=== PATIENT | female | born 1965 | race Caucasian/White ===

== ENCOUNTER 2017-01-20 16:40 | Emergency (ER) | payer SELFPAY ==
[2017-01-20] MEDS ORDERED: BENADRYL IV ONE (17:09)
[2017-01-20] MEDS ORDERED: REGLAN IV ONE (17:09)
--- NOTE | 2017-01-20 17:11 | Emergency Department Report ---
ED Headache HPI - General Chief Complaint: Headache Stated Complaint: MIGRAINE HEADACHE X3 WKS Time Seen by Provider: 01/20/17 17:03 - History of Present Illness Initial Comments: This is a 51-year-old female well-nourished with nontoxic or ill in appearance that presents with intermittent headache x3 weeks. Patient stated has hx of migraine headaches that is resolved with an unknown medication. Patient stated has been seeing a "Migraine doctor" and was given a mixed drug in the office that contents placenta. Patient stated the office has been closed because the provider retired and she no longer has the medication. Patient stated the headache are intermittent and describes it as throbbing sensation in frontal lobe region. Patient rates pain level of 8/10. Patient denies worst headache in her life. Patient stated darkness makes the headache subside and lightness and sounds makes the headache worst. Patient also denies CP, SOB, fever, chills , blurry vision, stiff neck, visual changes, abd pain, numbness, tingling. Patient states allergies to Sulfa. Denies PMH besides migraine headaches. Senait Bustos currently present at bedside. Timing/Duration: other (3 weeks) Quality: mild Head Injury Location: frontal Recent Head Trauma: no recent headache/trauma, frequent headaches, chronic headaches Associated Symptoms: denies symptoms. denies: confusion, fatigue, facial pain, fever/chills, flushing, loss of consciousness, nausea/vomiting, nasal congestion , nasal drainage, numbness in legs/feet, rash, seizures, sinus infection, stiff neck, vision changes, weakness Allergies/Adverse Reactions: Allergies Sulfa (Sulfonamide Antibiotics) Allergy (Verified 01/20/17 16:48) Rash Home Medications: Ambulatory Orders Ibuprofen [Motrin 600 MG tab] 600 mg PO Q8H PRN #20 tablet 01/20/17 ED Review of Systems ROS: Stated complaint: MIGRAINE HEADACHE X3 WKS Other details as noted in HPI Constitutional: denies: chills, fever Eyes: denies: eye pain, eye discharge, vision change ENT: denies: ear pain, throat pain Respiratory: denies: cough, shortness of breath, wheezing Cardiovascular: denies: chest pain, palpitations Endocrine: no symptoms reported Gastrointestinal: denies: abdominal pain, nausea, diarrhea Genitourinary: denies: urgency, dysuria, discharge Musculoskeletal: denies: back pain, joint swelling, arthralgia Skin: denies: rash, lesions Neurological: denies: headache, weakness, paresthesias Psychiatric: denies: anxiety, depression Hematological/Lymphatic: denies: easy bleeding, easy bruising ED Past Medical Hx - Past Medical History Previous Medical History?: Yes Hx Headaches / Migraines: Yes - Surgical History Additional Surgical History: hysterectomy - Social History Smoking Status: Never Smoker Substance Use Type: None - Medications Home Medications: Home Medications Medication Instructions Recorded Confirmed Last Taken Type Ibuprofen [Motrin 600 MG tab] 600 mg PO Q8H PRN #20 tablet 01/20/17 Unknown Rx ED Physical Exam - General Limitations: No Limitations General appearance: alert, in no apparent distress - Head Head exam: Present: atraumatic, normocephalic, normal inspection - Eye Eye exam: Present: normal appearance, PERRL, EOMI. Absent: scleral icterus, conjunctival injection, nystagmus, periorbital swelling, periorbital tenderness Pupils: Present: normal accommodation - ENT ENT exam: Present: normal exam, normal orophraynx, mucous membranes moist, TM's normal bilaterally, normal external ear exam - Neck Neck exam: Present: normal inspection, full ROM. Absent: tenderness, meningismus, lymphadenopathy, thyromegaly - Respiratory Respiratory exam: Present: normal lung sounds bilaterally. Absent: respiratory distress, wheezes, rales, rhonchi, stridor, chest wall tenderness, accessory muscle use, decreased breath sounds, prolonged expiratory - Cardiovascular Cardiovascular Exam: Present: regular rate, normal rhythm, normal heart sounds. Absent: bradycardia, tachycardia, irregular rhythm, systolic murmur, diastolic murmur, rubs, gallop - GI/Abdominal GI/Abdominal exam: Present: soft, normal bowel sounds. Absent: distended, tenderness, guarding, rebound, rigid, diminished bowel sounds - Extremities Exam Extremities exam: Present: normal inspection, full ROM, normal capillary refill. Absent: tenderness, pedal edema, joint swelling, calf tenderness - Back Exam Back exam: Present: normal inspection, full ROM. Absent: tenderness, CVA tenderness (R), CVA tenderness (L), muscle spasm, paraspinal tenderness, vertebral tenderness, rash noted - Neurological Exam Neurological exam: Present: alert, oriented X3, CN II-XII intact, normal gait, reflexes normal - Expanded Neurological Exam Expanded Patient oriented to: Present: person, place, time Speech: Present: fluid speech (normal speech) Cranial nerves: EOM's Intact: Normal, Gag Reflex: Normal, Tongue Deviation: Normal, Nystagmus: Normal, Facial Sensation: Normal, Facial Palsy with Forehead Movement: Normal, Facial Palsy without Forehead Movement: Normal Cerebellar function: Finger to Nose: Normal, Heel to Buck: Normal, Romberg: Normal Upper motor neuron: Santiago Neglect: Normal, Pronator Drift: Normal, Babinski Sign : Normal, Sensory Extinction: Normal Sensory exam: Upper Extremity Light Touch: Normal, Upper Extremity Pin Prick: Normal, Upper Extremity Temperature: Normal, UE 2 Point Discrimination: Normal, Lower Extremity Light Touch: Normal, Lower Extremity Pin Prick: Normal, Lower Extremity Temperature: Normal, LE 2 Point Discrimination: Normal Motor strength exam: RUE: 5, LUE: 5, RLE: 5, LLE: 5 DTR: bicep (R): 2+, bicep (L): 2+, tricep (R): 2+, tricep (L): 2+, knee (R): 2+ , knee (L): 2+, ankle (R): 2+, ankle (L): 2+ Best Eye Response ([place]): (4) open spontaneously Best Motor Response ([place]): (6) obeys commands Best Verbal Response (Talia): (5) oriented Talia Total: 15 - Psychiatric Psychiatric exam: Present: normal affect, normal mood - Skin Skin exam: Present: warm, dry, intact, normal color. Absent: rash ED Course Vital Signs 01/20/17 16:44 Temperature 98.6 F Pulse Rate 60 Respiratory 16 Rate Blood Pressure 135/85 O2 Sat by Pulse 100 Oximetry - Reevaluation(s) Reevaluation #1: 01/20/17 18:21 Patient stated feels much better and headache has subsided after treatment in the ED. No signs of distress noted. Senait Sargent is currently present at the bedside. Reevaluation #2: 01/20/17 18:43 Patient is resting comfortably with no signs of distress. Patient stated "feels like a new person". Denies headache currently and stated headache has subsided completely 0/10. ED Medical Decision Making - Medical Decision Making Ed course: This is a 51-year-old female that presents with migrane headaches 1- after my physical exam, patient received Benadryl, Reglan, Toradol, normal saline 1000 mL bolus in the ED 2- patient felt much better with headaches subside. 3- patient's senait Sargent is currently present the bedside and I instructed patient and fibette not operate heavy machinery after discharge due to sedation/drowsiness of Benadryl. 4- patient received ibuprofen 600 mg by mouth at the time of discharge. 5- at time time of discharge, the patient does not seem toxic or ill in appearance. No acute signs of distress noted. Patient agrees to discharge treatment plan of care. No further questions noted by the patient. 6-Follow-up with your primary care doctor/neurologist in 3-5 days or if symptoms such as blurred vision, severe uncontrollable headache, nausea vomiting , dizziness, chest pain, shortness of breath, numbness or tingling sensation, abdominal pain before bouts of motion which was possible. Critical care attestation.: If time is entered above; I have spent that time in minutes in the direct care of this critically ill patient, excluding procedure time. ED Disposition Clinical Impression: Headache Qualifiers: Headache type: unspecified Headache chronicity pattern: chronic headache Intractability: not intractable Qualified Code(s): R51 - Headache Disposition: DC-01 TO HOME OR SELFCARE Is pt being admited?: No Does the pt Need Aspirin: No Condition: Stable Instructions: Ibuprofen (By mouth), Acute Headache (ED) Additional Instructions: Follow-up with your primary care doctor/neurologist in 3-5 days or if symptoms such as blurred vision, severe uncontrollable headache, nausea vomiting, dizziness, chest pain, shortness of breath, numbness or tingling sensation, abdominal pain before bouts of motion which was possible. Take ibuprofen as prescribed as needed for pain Prescriptions: Ibuprofen [Motrin 600 MG tab] 600 mg PO Q8H PRN #20 tablet PRN Reason: Pain Referrals: PRIMARY CAREMD [Primary Care Provider] - 3-5 Days VIVIEN WARREN MD [Staff Physician] - 3-5 Days CLAY PICKETT JR, MD [Staff Physician] - 3-5 Days [facility] [Outside] - 3-5 Days [facility] [Outside] - 3-5 Days Forms: Work/School Release Form(ED)
[2017-01-20] MEDS ORDERED: NACL 0.9% 1000 ML 1,000 ML IV ONE (17:12)
[2017-01-20] MEDS ORDERED: TORADOL IV ONE (17:12)
[2017-01-20 19:48] VITALS: BP 118/78
== END 2017-01-20 19:47 | disposition home or self-care (01) ==
LOC: ED 16:40
DX: G43.909 Migraine, unspecified, not intractable, without status migrainosus (principal); Z88.2 Allergy status to sulfonamides; Z90.710 Acquired absence of both cervix and uterus
CPT/HCPCS: 96361; 96374; 96375; 99282; J1200; J1885; J2765; J7030

== ENCOUNTER 2018-08-03 14:47 | Emergency (ER) | payer OTHER ==
[2018-08-03 15:06] VITALS: BP 123/79
--- NOTE | 2018-08-03 18:09 | Emergency Department Report ---
HPI - General Chief Complaint: Pain General Time Seen by Provider: 08/03/18 17:25 - HPI HPI: This is a 52-year-old female who presents complaining of dull frontal headache and lower head and upper neck sharp pain radiating to the left shoulder for the past 9 weeks. Patient states about 10 days ago she was seen at [facility] and was given some medications such as ibuprofen and Flexeril and Fioricet. Patient states she's been taking his medications and has not had relief. Patient states pain is getting worse. Patient states and describes pain started in the upper part of the neck/head and radiates down her shoulder. She states is sharp and intermittent throughout the day. Patient denies any trauma injuries or fall. Patient states she had a CT of her head at [facility] which was normal. Patient also states that she recently was prescribe the wrong pair of glasses and has an appointment to going get that replaced. Patient admits mild blurry vision with the headaches but no loss of vision. She denies fevers/chills/nausea vomiting/chest pain or shortness of breath. ED Past Medical Hx - Past Medical History Previous Medical History?: Yes Hx Headaches / Migraines: Yes - Surgical History Past Surgical History?: Yes Additional Surgical History: hysterectomy - Social History Smoking Status: Never Smoker Substance Use Type: Prescribed - Medications Home Medications: Home Medications Medication Instructions Recorded Confirmed Last Taken Type Ibuprofen [Motrin 600 MG tab] 600 mg PO Q8H PRN #20 tablet 01/20/17 Unknown Rx Gabapentin [Neurontin] 100 mg PO BID #20 capsule 08/03/18 Unknown Rx ED Review of Systems ROS: Stated complaint: HEADACHE/BODY PAIN/BLURR VISION Other details as noted in HPI Constitutional: denies: chills, fever Eyes: denies: eye pain, eye discharge, vision change ENT: denies: ear pain, throat pain Respiratory: denies: cough, shortness of breath, wheezing Cardiovascular: denies: chest pain, palpitations Endocrine: no symptoms reported Gastrointestinal: denies: abdominal pain, nausea, vomiting, diarrhea Genitourinary: denies: urgency, dysuria, discharge Musculoskeletal: denies: back pain, joint swelling, arthralgia Neurological: headache. denies: weakness, paresthesias Physical Exam - Physical Exam Vital Signs: Vital Signs 08/03/18 15:01 Temperature 98.2 F Pulse Rate 87 Respiratory 18 Rate Blood Pressure 123/79 O2 Sat by Pulse 98 Oximetry Physical Exam: GENERAL: Alert and oriented x3, no apparent distress, Normal Gait, atraumatic. HEAD: Head is normocephalic and a-traumatic. EYES: Extra ocular muscles are intact. Pupils are equal, round, and reactive to light and accommodation. NECK: Supple. Non edematous, No carotid bruits. No lymphadenopathy or thyromegaly. No C-spine tenderness, no nuchal rigidity, tenderness to palpation of the left lateral neck muscles. LUNGS: Symetrical with respiration, No wheezing, no rales or crackles, CTAB. HEART: S1, S2 present, regular rate and rhythm without murmur, no rubs, no gallops. Non tender to palpation EXTREMITIES/MUSCULOSKELETAL: No cyanosis, clubbing, rash, lesions or edema. Full ROM bilaterally. NEUROLOGIC: The patient is cooperative with no focal neurologic deficits. Cranial nerves II through XII are grossly intact. Normal speech. Normal sensation in bilateral upper and lower extremities, SKIN: Warm and dry, No lesions, No ulceration or induration present. ED Course Vital Signs 08/03/18 15:01 Temperature 98.2 F Pulse Rate 87 Respiratory 18 Rate Blood Pressure 123/79 O2 Sat by Pulse 98 Oximetry ED Medical Decision Making - Radiology Data Radiology results: report reviewed, image reviewed FINAL REPORT EXAM: CT CERVICAL SPINE WO CON HISTORY: radiating neck pain TECHNIQUE: Axial helical imaging through the cervical spine with sagittal and coronal reformatted images obtained. Comparison: None FINDINGS: There is mild reversal of the normal lordotic curve of the cervical spine. The vertebral heights are maintained. There is loss of height of the C4-C5, C5-C6 and C6-C7 discs with associated degenerative endplate change, uncovertebral degenerative change and endplate osteophyte/disc complex formation. This results in canal and foraminal stenosis at these levels. Visualization detail of the contents of the cervical canal is limited by artifact. There is no evidence of fracture or subluxation. The paraspinous soft tissues are unremarkable. IMPRESSION: 1. No evidence of fracture or subluxation. 2. Cervical spondylosis. Transcribed By: ED Dictated By: BRAXTON PROCTOR MD Electronically Authenticated By: BRAXTON PROCTOR MD Signed Date/Time: 01/01/14 1845 - Medical Decision Making 52-year-old female who presents with cervical radiculopathy/spondylossis CT of the neck is reported above. Discussed findings with the patient. Discussed patient referral for neurologist. Discussed patient also follow up with her eye doctor as her in correct glasses could also be starting of headaches. Patient is in no acute or respiratory distress. Patient had no neuro deficit. She is speaking in sentences Patient understands instructions. Vital signs are normal - Differential Diagnosis cervical adenopathy, cervical disc herniation, osteoarthritis, spondylosis Critical care attestation.: If time is entered above; I have spent that time in minutes in the direct care of this critically ill patient, excluding procedure time. ED Disposition Clinical Impression: Cervical radiculopathy, Cervical spondylosis Disposition: TO HOME OR SELFCARE Is pt being admited?: No Does the pt Need Aspirin: No Condition: Stable Instructions: Osteoarthritis (ED), Cervical Spinal Stenosis (ED), Cervical Radiculopathy (ED) Additional Instructions: Make sure to follow up with the primary care physician as discussed. Take all your medications as you've been prescribed. If you have any worsening symptoms or develop new symptoms please return to ED immediately. Prescriptions: Gabapentin [Neurontin] 100 mg PO BID #20 capsule Referrals: VIVIEN WARREN MD [Staff Physician] - 3-5 Days HARITHA HENRY MD [Referring] - 3-5 Days Forms: Work/School Release Form(ED) Time of Disposition: 18:52
--- NOTE | 2018-08-03 18:45 | Cat Scan Report ---
FINAL REPORT EXAM: CT CERVICAL SPINE WO CON HISTORY: radiating neck pain TECHNIQUE: Axial helical imaging through the cervical spine with sagittal and coronal reformatted im ages obtained. Comparison: None FINDINGS: There is mild reversal of the normal lordotic curve of the cervical spine. The vertebral heights are maintained. There is loss of height of the C4-C5, C5-C6 and C6-C7 discs with associated degenerative endplate genny nge, uncovertebral degenerative change and endplate osteophyte/disc complex formation. This results i n canal and foraminal stenosis at these levels. Visualization detail of the contents of the cervical canal is limited by artifact. There is no evidence of fracture or subluxation. The paraspinous soft tissues are unremarkable. IMPRESSION: 1. No evidence of fracture or subluxation. 2. Cervical spondylosis.
== END 2018-08-03 19:00 | disposition home or self-care (01) ==
LOC: ED 14:47
DX: M54.12 Radiculopathy, cervical region (principal); M47.892 Other spondylosis, cervical region; G43.909 Migraine, unspecified, not intractable, without status migrainosus; Z90.710 Acquired absence of both cervix and uterus; Z88.2 Allergy status to sulfonamides
CPT/HCPCS: 72125; 99283

== ENCOUNTER 2019-06-17 00:05 | Emergency (ER) | payer SELFPAY ==
[2019-06-17 00:43] VITALS: BP 126/72
[2019-06-17] MEDS ORDERED: IBUPROFEN 800 MG TAB PO ONE (01:59)
--- NOTE | 2019-06-17 02:03 | Emergency Department Report ---
ED Lower Extremity HPI - General Chief Complaint: Extremity Problem,Nontraumatic Stated Complaint: SWOLLEN LT KNEE Time Seen by Provider: 06/17/19 01:43 Source: patient Mode of arrival: Ambulatory Limitations: No Limitations - History of Present Illness Initial Comments: This is a 53-year-old -Portuguese female who presents to the emergency room with left knee pain and swelling for 1 week. Past medical history of migraines. Patient reports pain is worse with movement. She is apply ice and taking NSAIDs with minimal improvement of symptoms. Patient denies injury, numbness or tingling, weakness, bruising, warmth to touch. MD Complaint: knee injury (left) Onset/Timin -: week(s) Injury: Knee: Left Type of Injury: unknown Improves With: immobilization Worsens With: movement Associated Symptoms: swelling, able to partially bear weight. denies: snap/pop sensation, numbness, tingling Treatments Prior to Arrival: cold therapy, NSAIDS - Related Data Previous Rx's Medication Instructions Recorded Last Taken Type Gabapentin [Neurontin] 100 mg PO BID #20 capsule 08/03/18 Unknown Rx Ibuprofen [Motrin 600 MG tab] 600 mg PO Q8H PRN #20 tablet 06/17/19 Unknown Rx Allergies Allergy/AdvReac Type Severity Reaction Status Date / Time Sulfa (Sulfonamide Allergy Rash Verified 01/20/17 16:48 Antibiotics) ED Review of Systems ROS: Stated complaint: SWOLLEN LT KNEE Other details as noted in HPI Constitutional: denies: chills, fever Respiratory: denies: cough, shortness of breath, wheezing Cardiovascular: denies: chest pain, palpitations Gastrointestinal: denies: abdominal pain, nausea, diarrhea Musculoskeletal: joint swelling (left knee), arthralgia (left knee). denies: back pain Skin: denies: rash, lesions Neurological: denies: headache, weakness, paresthesias Psychiatric: denies: anxiety, depression ED Past Medical Hx - Past Medical History Previous Medical History?: No Hx Headaches / Migraines: Yes - Surgical History Past Surgical History?: Yes Additional Surgical History: hysterectomy, 2004 - Social History Smoking Status: Never Smoker Substance Use Type: None - Medications Home Medications: Home Medications Medication Instructions Recorded Confirmed Last Taken Type Gabapentin [Neurontin] 100 mg PO BID #20 capsule 08/03/18 Unknown Rx Ibuprofen [Motrin 600 MG tab] 600 mg PO Q8H PRN #20 tablet 06/17/19 Unknown Rx ED Physical Exam - General Limitations: No Limitations General appearance: alert, in no apparent distress, obese - Respiratory Respiratory exam: Present: normal lung sounds bilaterally. Absent: respiratory distress - Cardiovascular Cardiovascular Exam: Present: regular rate, normal rhythm. Absent: systolic murmur, diastolic murmur, rubs, gallop - Expanded Lower Extremity Exam Left Hip exam: Present: normal inspection, full ROM Upper Leg exam: Present: normal inspection, full ROM Knee exam: Present: full ROM (pain with range of motion), tenderness (tenderness and swelling to anterior patella), swelling, crepidus, full knee extension. Absent: abrasion, laceration, ecchymosis, deformity, dislocation, erythema, effusion, pain w/ pronation/supination, posterior draw sign, pain/laxity with valgus, pain/laxity with varus Lower Leg exam: Present: normal inspection, full ROM Ankle exam: Present: normal inspection, full ROM Foot/Toe exam: Present: normal inspection, full ROM Neuro vascular tendon exam: Present: no vascular compromise Gait: Positive: observed and limited by pain - Neurological Exam Neurological exam: Present: alert, oriented X3, normal gait - Psychiatric Psychiatric exam: Present: normal affect, normal mood - Skin Skin exam: Present: warm, dry, intact, normal color. Absent: rash ED Course Vital Signs 06/17/19 00:38 Temperature 97.9 F Pulse Rate 67 Respiratory 18 Rate Blood Pressure 126/72 O2 Sat by Pulse 97 Oximetry ED Lower Extremity MDM - Radiology Data Radiology results: report reviewed LEFT KNEE 3 VIEWS INDICATION / CLINICAL INFORMATION: swelling and pain COMPARISON: None available. FINDINGS: BONES / JOINT(S): No acute fracture or subluxation. Mild DJD greatest at the patellofemoral joint. SOFT TISSUES: Moderate effusion. ADDITIONAL FINDINGS: None. - Medical Decision Making Patient was examined by me. Patient is nontoxic appearing and stable. Vitals are normal. Moderate swelling to anterior patella, pain with FROM, pain with range of motion. No erythema or laxity. Obtained x-ray of left knee. Effusion and mild DJD patellofemoral joint. Given analgesics while in the ER. Knee immobilizer applied to left knee. Rice therapy instructions given. Start ibuprofen for pain. Follow up with PCP or return to the ER with worsening symptoms. Patient discharged home in stable condition. Critical care attestation.: If time is entered above; I have spent that time in minutes in the direct care of this critically ill patient, excluding procedure time. 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 Take pain medication as needed for pain. Follow up with Primary Care Provider in 2-3 days. Prescriptions: Ibuprofen [Motrin 600 MG tab] 600 mg PO Q8H PRN #20 tablet PRN Reason: Pain Referrals: [facility] [Provider Group] - 3-5 Days [facility] [Provider Group] - 3-5 Days [facility] [Provider Group] - 3-5 Days SIENA ERICKSON MD [Staff Physician] - 3-5 Days [facility] [Provider Group] - 3-5 Days Forms: Work/School Release Form(ED) Time of Disposition: 03:12
--- NOTE | 2019-06-17 02:29 | XRay Report ---
LEFT KNEE 3 VIEWS INDICATION / CLINICAL INFORMATION: swelling and pain COMPARISON: None available. FINDINGS: BONES / JOINT(S): No acute fracture or subluxation. Mild DJD greatest at the patellofemoral joint. SOFT TISSUES: Moderate effusion. ADDITIONAL FINDINGS: None. Signer Name: Jah Quinones MD Signed: 06/17/2019 2:25 AM Workstation Name: [email or web address]
== END 2019-06-17 03:20 | disposition home or self-care (01) ==
LOC: ED 00:05
DX: M17.12 Unilateral primary osteoarthritis, left knee (principal); G43.909 Migraine, unspecified, not intractable, without status migrainosus; Z90.710 Acquired absence of both cervix and uterus; Z79.899 Other long term (current) drug therapy; Z88.2 Allergy status to sulfonamides